=== PATIENT | female | born 1955 | race Caucasian/White ===

== ENCOUNTER 2017-02-21 18:27 | Emergency (ER) | payer SELFPAY ==
[~2017-02-21] VITALS: Ht 152.4 cm; Wt 61.5 kg
[2017-02-21 18:28] VITALS: BP 131/73
== END 2017-02-21 19:32 | disposition home or self-care (01) ==
LOC: ED 19:26
DX: Z76.0 Encounter for issue of repeat prescription (principal)
CPT/HCPCS: 36415; 80164; 99283